=== PATIENT | male | born 1955 | race Caucasian/White ===

== ENCOUNTER 2023-07-22 13:31 | Observation (INO) | payer MEDICAID, OTHER ==
[2023-07-22 14:10] LABS: #Basophils 0.1 thou/uL (0.0-0.2); #Eosinphils 0.6 thou/uL (0.0-0.7); #Monocytes 0.3 thou/uL (0.11-0.59); #Neutrophils 3.8 thou/uL (1.40-6.50); %Basophils 0.8 % (0.0-1.0); %Eosinophils 8.7 % (0.0-10.0); %Lymphocytes 27.1 % (21.0-51.0); %Monocytes 4.2 % (0.0-10.0); Hematocrit 43.6 % (42.0-52.0); Hemoglobin 15.1 g/dL (14.0-18.0); Mean Corpuscular HGB CONC 34.6 g/dL (32.0-36.0); Mean Corpuscular Hemoglobin 29.3 pg (27.0-31.0); Mean Corpuscular Volume 84.5 fl (78.0-98.0); Mean Platelet Volume 9.5 fL (7.4-10.4); Platelet Count 222 10x3/uL (130-400); RBC Distribution Width 12.8 % (11.5-14.5); Red Blood Cell (RBC) Count 5.16 mill/uL (4.70-6.10); White Blood Cell (WBC) Count 6.4 10x3/uL (4.8-10.8)
[2023-07-22] MEDS ORDERED: Nitroglycerin 2% Ointment 1 INCH/1 GM Packet ONE (14:30)
[2023-07-22 14:31] LABS: ALT (SGPT) 8 U/L (8-55); AST (SGOT) 11 U/L (5-34); Albumin 4.3 g/dL (3.4-4.8); Alkaline Phosphatase 42 U/L (40-110); Anion Gap 10 mmol/L (10-20); BUN (Urea Nitrogen) 16 mg/dL (8.4-25.7); Bilirubin, Total 0.4 mg/dL (0.2-1.2); Calc. Creatinine Clearance 0 mL/min (70-130); Calcium 9.7 mg/dL (7.8-10.44); Carbon Dioxide 26 mmol/L (23-31); Chloride 99 mmol/L (98-107); Estimated GFR 95; Globulin 2.7 g/dL (2.4-3.5); Glucose 94 mg/dL (80-115); Potassium 4.1 mmol/L (3.5-5.1); Sodium 131 mmol/L (136-145)
[2023-07-22 14:32] LABS: Troponin I Less than 0.010 ng/mL (< 0.028)
[2023-07-22] MEDS ORDERED: Ondansetron PF 4 MG/2 ML Vial ONE (14:37)
[2023-07-22] MEDS ORDERED: Ondansetron PF 4 MG/2 ML Vial IVP PRN ×2 (15:45→16:25)
[2023-07-22] MEDS ORDERED: Ondansetron ODT 4 MG TAB SL PRN (15:45)
[2023-07-22] MEDS ORDERED: Nitroglycerin 0.4 MG TAB (25 Tab Bottle) SL PRN (16:25)
[2023-07-22] MEDS ORDERED: Acetaminophen 650 MG Suppository PR PRN (16:25)
[2023-07-22] MEDS ORDERED: Senokot S 8.6-50 MG TAB PO PRN (16:25)
[2023-07-22] MEDS ORDERED: Acetaminophen 325 MG TAB PO PRN (16:25)
[2023-07-22] MEDS ORDERED: Ondansetron ODT 4 MG TAB PO PRN (16:25)
[2023-07-22 17:33] LABS: Magnesium 1.7 mg/dL (1.6-2.6)
[2023-07-22 17:39] LABS: Troponin I Less than 0.010 ng/mL (< 0.028)
[2023-07-22 18:35] VITALS: BMI 22.8
[2023-07-22] MEDS: Famotidine 20 MG TAB PO SCH (20:55)
[2023-07-22] MEDS: Nitroglycerin 2% Ointment 1 INCH/1 GM Packet TOP SCH (20:56)
[2023-07-22] MEDS ORDERED: Lisinopril 20 MG TAB PO SCH (21:00)
[2023-07-22] MEDS ORDERED: Finasteride 5 MG TAB PO SCH (21:00)
[2023-07-22] MEDS ORDERED: Tamsulosin HCl 0.4 MG CAP PO SCH (21:00)
[2023-07-22] MEDS ORDERED: OLANZapine 5 MG TAB PO SCH (21:00)
[2023-07-22] MEDS ORDERED: Magnesium Oxide 250 MG TAB PO SCH (21:00)
[2023-07-22] MEDS ORDERED: Atorvastatin Calcium 20 MG TAB PO SCH (21:00)
[2023-07-22 21:29] LABS: Troponin I Less than 0.010 ng/mL (< 0.028)
[2023-07-23 00:54] LABS: Troponin I Less than 0.010 ng/mL (< 0.028)
[2023-07-23] MEDS: Nitroglycerin 2% Ointment 1 INCH/1 GM Packet TOP SCH ×2 (04:54→13:42)
[2023-07-23] MEDS ORDERED: Levothyroxine Sodium 88 MCG TAB PO SCH (06:00)
[2023-07-23 06:30] LABS: Anion Gap 10 mmol/L (10-20); BUN (Urea Nitrogen) 16 mg/dL (8.4-25.7); Calc. Creatinine Clearance 76 mL/min (70-130); Carbon Dioxide 26 mmol/L (23-31); Cardiac Risk 3.4 (Less than 4.5); Chloride 103 mmol/L (98-107); Cholesterol 101 mg/dl (< 200 Desired); Estimated GFR 94; Glucose 92 mg/dL (80-115); HDL Cholesterol 30 mg/dL (>60 Neg Risk); LDL Cholesterol, Calculated 47 mg/dL; Potassium 3.8 mmol/L (3.5-5.1); Sodium 135 mmol/L (136-145); Triglycerides 122 mg/dL (Less than 150)
[2023-07-23] MEDS ORDERED: Aspirin Chewable 81 MG TAB PO SCH (09:00)
[2023-07-23] MEDS ORDERED: Regadenoson 0.4 MG/5 ML SYRINGE ONE (09:32)
[2023-07-23] MEDS: Famotidine 20 MG TAB PO SCH (13:16)
[2023-07-23 15:45] VITALS: BP 138/67; TEMP 98.1
== END 2023-07-23 19:05 | disposition home or self-care (01) ==
LOC: ERS 13:31 → ERHOLD 15:35 → 2SW 18:40
PROVIDERS: ADMIT Hospitalist; ATTEND Internal Medicine
DX: R07.9 Chest pain, unspecified (principal); I10 Essential (primary) hypertension; E78.5 Hyperlipidemia, unspecified; E03.9 Hypothyroidism, unspecified; N40.0 Benign prostatic hyperplasia without lower urinary tract symptoms; F31.30 Bipolar disorder, current episode depressed, mild or moderate severity, unspecified; F17.210 Nicotine dependence, cigarettes, uncomplicated; Z79.899 Other long term (current) drug therapy; Z79.890 Hormone replacement therapy
CPT/HCPCS: 71045; 78452; 80048; 80053; 80061; 83036; 83690; 83735; 83880; 84443; 84484 ×3; 85025; 85730; 93005 ×2; 93017; 96374; 99285; A9500; J2785; 36415; 93010; J1650; J2405